=== PATIENT | male | born 1935 | race Caucasian/White ===

== ENCOUNTER → 2016-12-12 | Outpatient (CLI) | payer MEDICARE, BC ==
[2015-10-23 10:31] VITALS: BP 133/76
[~2016-12-12] MED LIST: ALBI50PE SQ; AMLO1TAB95 PO; ASPI325T4 PO; ATOR10TA PO; CIME300T PO; DUTA0.5C PO; GLIM4TAB PO; LEVO100T5 PO; LEVO25TA4 PO; METO100T11 PO; OLME1TAB35 PO; PIOG30TA20 PO; SILO8CAP PO; SITA100T PO; SULFAMETHOXAZOLE PO; TEST75GE TP; ZOLP10TA PO
--- NOTE | 2016-12-12 12:15 | RAD ---
Examination: Ultrasound abdomen complete History: History of elevated liver function tests. Comparison: None available Findings: The examination is limited due to patient body habitus The evaluation of the visualized pancreas, aorta, IVC is limited due to bowel gas. There is increased echogenicity noted throughout the liver likely hepatic steatosis. The gallbladder is mildly distended. No evidence of gallstones. The right kidney measures 13.8 x 7.3 x 6.5 cm. There is a cystic structure identified in the right kidney measuring 1.5 x 1.6 x 1.7 cm The left kidney measures 12.6 x 5.8 x 6.1 cm. There are cystic structure identified in the left kidney measuring 1.6 cm. Calcifications identified in the spleen likely granulomas. The spleen measures 11.3 cm in length. Impression: 1. Increased echogenicity noted throughout the liver likely hepatic steatosis. 2. Cystic structures identified in the bilateral kidneys probably cysts. 3. Examination is limited due to patient body habitus and due to bowel gas.
== END | disposition home or self-care (01) ==
LOC: US 10:32
PROVIDERS: ATTEND Family Medicine
DX: R94.5 Abnormal results of liver function studies (principal)
CPT/HCPCS: 76700

== ENCOUNTER → 2016-12-12 | Outpatient (CLI) | payer MEDICARE, BC ==
[2015-10-23 10:31] VITALS: BP 133/76
--- NOTE | 2016-12-12 12:19 | RAD ---
Chest, 2 views, 12/12/2016: History: Hypercalcemia Comparison is made to a study from 03/15/2016. The heart size and pulmonary vascularity are normal. No pulmonary infiltrates are seen. There is no evidence of pleural fluid. Mild spurring is present in the spine. IMPRESSION: No acute cardiopulmonary abnormality is detected.
== END | disposition home or self-care (01) ==
LOC: DXRAD 10:39
PROVIDERS: ATTEND Nurse Practitioner Family
DX: E83.52 Hypercalcemia (principal)
CPT/HCPCS: 71020